=== PATIENT | female | born 2000 | race Caucasian/White ===

== ENCOUNTER 2024-11-01 09:05 | Emergency (ER) | payer BC, MEDICAID ==
[~2024-11-01] VITALS: Ht 157.5 cm; Wt 95.0 kg
[2024-11-01 09:14] VITALS: O2SAT 100
[2024-11-01] MEDS: KETOROLAC 30MG/ML VIAL IM ONE (09:47)
[2024-11-01] MEDS: METHOCARBAMOL 500MG TABLET PO ONE (09:48)
[2024-11-01] MEDS: CLONIDINE 0.1MG TABLET PO ONE (09:48)
[2024-11-01 09:58] LABS: CREATININE 0.9 mg/dL (0.6-1.0)
[2024-11-01 09:59] LABS: BASOPHILS % 1.0 % (0.0-2.0); EOSINOPHILS % 3.2 % (0.0-5.0); HEMATOCRIT. 39.8 % (36.0-48.0); HEMOGLOBIN. 12.6 g/dL (12.0-16.0); LYMPHOCYTES % 49.3 % (20.0-50.0); MEAN PLATELET VOLUME 8.1 fl (7.4-10.4); MONOCYTES % 6.3 % (2.0-8.0); NEUTROPHILS % 40.2 % (40.0-76.0); PLATELET 379 x1000/uL (130-400); RED BLOOD CELL COUNT 6.00 mill/uL (4.2-5.4); RED CELL DISTRIBUTION WIDTH 16.9 % (11.6-14.6); UREA NITROGEN BLOOD 7 mg/dL (9-23)
[2024-11-01 10:00] LABS: ADD RBC MORPHOLOGY YES
[2024-11-01 10:23] LABS: PLATELET ESTIMATE NORMAL
[2024-11-01 10:33] LABS: HCG SCREEN NEGATIVE
[2024-11-01] MEDS ORDERED: METH-653 MT (11:49)
[2024-11-01] MEDS ORDERED: IBUP-2029 MT (11:49)
[2024-11-01] MEDS ORDERED: LIDO700A30 TP (11:49)
[2024-11-01 12:11] VITALS: BP 143/96; PULSE 76; RESP 18; TEMP 36.9; O2SAT 97
== END 2024-11-01 12:20 | disposition home or self-care (01) ==
LOC: ER 09:05
DX: M48.07 Spinal stenosis, lumbosacral region (principal); E28.2 Polycystic ovarian syndrome; I10 Essential (primary) hypertension
CPT/HCPCS: 99285; 72131; 80048; 81025; 84703; 85025; 36415; 96372; J1885

== ENCOUNTER → 2024-12-05 | Outpatient (CLI) | payer BC ==
[~2024-12-05] MED LIST: IBUP-1455 MT; LIDO700A30 TP; METH-653 MT
[2024-12-05 14:26] LABS: CREATININE 0.9 mg/dL (0.6-1.0)
== END | disposition home or self-care (01) ==
LOC: LAB 13:48
PROVIDERS: ATTEND Internal Medicine
DX: I10 Essential (primary) hypertension (principal); E28.2 Polycystic ovarian syndrome; D35.00 Benign neoplasm of unspecified adrenal gland; M54.30 Sciatica, unspecified side
CPT/HCPCS: 36415; 82040; 82088; 82565; 84244; 84403

== ENCOUNTER 2024-12-08 16:47 | Inpatient (IN) | payer BC ==
[~2024-12-08] VITALS: Ht 157.5 cm; Wt 96.2 kg
[2024-12-08 17:23] VITALS: O2SAT 100
[2024-12-08 19:46] LABS: GLUCOSE URINE TRACE (NEGATIVE); KETONES URINE TRACE (NEGATIVE); LEUKOCYTE ESTERASE URINE NEGATIVE (NEGATIVE); NITRITE URINE NEGATIVE (NEGATIVE); OCCULT BLOOD URINE NEGATIVE (NEGATIVE); PH URINE 5.0 (4.5-8.0); PROTEIN URINE 1+ (NEGATIVE); SPECIFIC GRAVITY URINE 1.030 (1.005-1.030); UROBILINOGEN URINE 0.2 E.U./dL (0.2-1.0)
[2024-12-08] MEDS: HYDROCODONE/ACETAMINOPHEN 5/325MG TABLET PO ONE (19:56)
[2024-12-08 20:20] LABS: CLARITY URINE SL HAZY (CLEAR); COLOR URINE YELLOW (YELLOW)
[2024-12-08 20:22] LABS: WBC URINE 0-2 /hpf (0-2)
[2024-12-08 20:23] LABS: RBC URINE NONE SEEN /hpf (0-2); SQUAMOUS EPITHELIAL CELL URINE 1+ /lpf (RARE/1+)
[2024-12-08 20:25] LABS: BACTERIA URINE 1+
[2024-12-08 23:14] LABS: ADD RBC MORPHOLOGY YES; BASOPHILS % 0.7 % (0.0-2.0); EOSINOPHILS % 2.0 % (0.0-5.0); HEMATOCRIT. 37.8 % (36.0-48.0); HEMOGLOBIN. 12.2 g/dL (12.0-16.0); LYMPHOCYTES % 47.5 % (20.0-50.0); MEAN PLATELET VOLUME 8.1 fl (7.4-10.4); MONOCYTES % 6.4 % (2.0-8.0); NEUTROPHILS % 43.4 % (40.0-76.0); PLATELET 348 x1000/uL (130-400); RED BLOOD CELL COUNT 5.63 mill/uL (4.2-5.4); RED CELL DISTRIBUTION WIDTH 16.5 % (11.6-14.6)
[2024-12-08 23:22] LABS: PLATELET ESTIMATE NORMAL
[2024-12-08 23:25] LABS: CREATININE 0.8 mg/dL (0.6-1.0); UREA NITROGEN BLOOD 9 mg/dL (9-23)
[2024-12-08 23:27] LABS: ASPARTATE AMINOTRANSFERASE 25 IU/L (<34)
[2024-12-08 23:28] LABS: BILIRUBIN DIRECT 0.1 mg/dL (<=3.0); BILIRUBIN TOTAL 0.4 mg/dL (0.1-1.0); PROTEIN TOTAL 7.6 g/dL (6.0-8.3)
[2024-12-08 23:30] LABS: HCG SCREEN NEGATIVE
[2024-12-09] MEDS ORDERED: CLONIDINE 0.1MG TABLET PO PRN ×2 (01:00→07:45)
[2024-12-09 01:26] LABS: HEPATITIS C AB NON REACTIVE (Neg) (Negative)
[2024-12-09 01:40] VITALS: BP 126/81; PULSE 84; RESP 18; TEMP 36.5292
[2024-12-09] MEDS ORDERED: CLON0.1T PO (03:50)
[2024-12-09] MEDS ORDERED: LOSA50TA41 PO (03:50)
[2024-12-09] MEDS ORDERED: AMLO10TA80 PO (03:50)
[2024-12-09] MEDS ORDERED: GUAIFENESIN 200MG/10ML SUGAR FREE UDC PO PRN (07:45)
[2024-12-09] MEDS ORDERED: ACETAMINOPHEN 325MG TABLET PO PRN (07:45)
[2024-12-09] MEDS ORDERED: IPRATROPIUM/ALBUTEROL 0.5-3(2.5)MG/3ML NEB HHN PRN (07:45)
[2024-12-09] MEDS ORDERED: DOCUSATE SODIUM 100MG CAPSULE PO PRN (07:45)
[2024-12-09 08:00] VITALS: BP 131/92; PULSE 85; RESP 18; TEMP 36.6; O2SAT 99
[2024-12-09] MEDS ORDERED: KETOROLAC 30MG/ML VIAL IV PRN (08:15)
[2024-12-09] MEDS: LOSARTAN 25 MG TABLET PO SCH (09:13)
[2024-12-09] MEDS: AMLODIPINE 10MG TABLET PO SCH (09:13)
[2024-12-09] MEDS: HYDROCODONE/ACETAMINOPHEN 5/325MG TABLET PO PRN (09:14)
[2024-12-09 12:00] VITALS: BP 115/73; PULSE 85; RESP 20; TEMP 36.4; O2SAT 100
[2024-12-09] MEDS: GABAPENTIN 100MG CAPSULE PO SCH (13:42)
[2024-12-09] MEDS: CYCLOBENZAPRINE 10MG TABLET PO SCH (13:42)
[2024-12-09 16:00] VITALS: BP 134/79; PULSE 90; RESP 20; TEMP 36.2; O2SAT 98
[2024-12-09] MEDS ORDERED: NALOXONE HCL 0.4MG/ML VIAL IV PRN (17:15)
[2024-12-09 20:00] VITALS: BP 117/76; PULSE 95; RESP 20; TEMP 36.3; O2SAT 98
[2024-12-09] MEDS: ENOXAPARIN 30MG/0.3ML SYR SUBCUT SCH (21:49)
[2024-12-10] VITALS: BP 112/72; PULSE 92; RESP 20; TEMP 36.2; O2SAT 97
[2024-12-10 04:00] VITALS: BP 114/70; PULSE 83; RESP 20; TEMP 36.6; O2SAT 95
[2024-12-10 07:26] LABS: BASOPHILS % 0.7 % (0.0-2.0); EOSINOPHILS % 2.8 % (0.0-5.0); HEMATOCRIT. 37.4 % (36.0-48.0); HEMOGLOBIN. 12.4 g/dL (12.0-16.0); LYMPHOCYTES % 61.5 % (20.0-50.0); MEAN PLATELET VOLUME 8.9 fl (7.4-10.4); MONOCYTES % 6.8 % (2.0-8.0); NEUTROPHILS % 28.2 % (40.0-76.0); PLATELET 317 x1000/uL (130-400); RED BLOOD CELL COUNT 5.63 mill/uL (4.2-5.4); RED CELL DISTRIBUTION WIDTH 16.6 % (11.6-14.6)
[2024-12-10 07:28] LABS: TRIGLYCERIDE 281 mg/dL (0-150)
[2024-12-10 07:30] LABS: CREATININE 0.8 mg/dL (0.6-1.0)
[2024-12-10 07:31] LABS: LDL CHOLESTEROL 58 mg/dL (5-100); UREA NITROGEN BLOOD 11 mg/dL (9-23)
[2024-12-10 07:32] LABS: ASPARTATE AMINOTRANSFERASE 33 IU/L (<34)
[2024-12-10 07:33] LABS: BILIRUBIN DIRECT 0.2 mg/dL (<=3.0); BILIRUBIN TOTAL 0.6 mg/dL (0.1-1.0); PROTEIN TOTAL 7.2 g/dL (6.0-8.3)
[2024-12-10 07:34] LABS: T4 FREE 1.14 ng/dL (0.89-1.76)
[2024-12-10 07:41] LABS: ADD RBC MORPHOLOGY NO
[2024-12-10 08:56] VITALS: BP 129/75; PULSE 67; RESP 17; TEMP 36.9; O2SAT 100
[2024-12-10] MEDS: PANTOPRAZOLE SODIUM 40 MG/VIAL IV SCH (09:27)
[2024-12-10] MEDS ORDERED: LIDOCAINE HCL/EPINEPHRINE 1%-EPI 1:100,000 20ML VIAL ONE (11:03)
[2024-12-10] MEDS ORDERED: GENTAMICIN SULF 40MG/ML 2ML VIAL ONE (11:03)
[2024-12-10] MEDS ORDERED: THROMBIN (BOVINE) 5000 UNITS/VIAL TOP ONE (11:03)
[2024-12-10 11:55] LABS: INR 1.0
[2024-12-10 12:00] VITALS: BP 136/95; PULSE 87; RESP 20; TEMP 36.9; O2SAT 100
[2024-12-10] MEDS ORDERED: FAMOTIDINE 20MG/2ML VIAL IV ONE (12:17)
[2024-12-10] MEDS ORDERED: SUCCINYLCHOLINE CHLORIDE 200MG/10ML IV ONE (12:29)
[2024-12-10] MEDS ORDERED: DEXAMETHASONE 4MG/ML 1ML VIAL ONE (12:29)
[2024-12-10] MEDS ORDERED: CEFAZOLIN SODIUM 1000MG/VIAL ONE (12:29)
[2024-12-10] MEDS ORDERED: LIDOCAINE HCL 1% 10 MG/ML 10ML VIAL ONE (12:29)
[2024-12-10] MEDS ORDERED: ROCURONIUM BROMIDE 10MG/ML VIAL 5ML IV ONE ×2 (12:29→14:09)
[2024-12-10] MEDS ORDERED: NICARDIPINE 40MG/200ML PREMIX 200 ML IV ONE (12:37)
[2024-12-10] MEDS ORDERED: PHENYLEPHRINE 50MG/250ML PMX 250 ML IV ONE (12:37)
[2024-12-10] MEDS ORDERED: ACETAMINOPHEN 1000MG/100ML 100 ML IV ONE (12:37)
[2024-12-10] MEDS ORDERED: CITRIC ACID/SODIUM CITRATE SOLN 30ML UDC ONE (12:56)
[2024-12-10] MEDS ORDERED: EPHEDRINE SULFATE 50MG/ML VIAL ONE (12:59)
[2024-12-10] MEDS ORDERED: FENTANYL CITRATE/PF 50MCG/ML 2ML VIAL ONE (13:03)
[2024-12-10] MEDS ORDERED: HYDROMORPHONE HCL/PF 1MG/ML INJ ONE ×2 (13:54→17:12)
[2024-12-10] MEDS ORDERED: PROPOFOL 200MG/20ML VIAL IV ONE (14:10)
[2024-12-10] MEDS ORDERED: ONDANSETRON HCL 4MG/2ML INJ IV PRN (14:45)
[2024-12-10] MEDS ORDERED: HYDRALAZINE 20MG/ML VIAL IV PRN ×3 (14:45→17:30)
[2024-12-10] MEDS ORDERED: HYDROMORPHONE HCL/PF 1MG/ML INJ IV PRN (14:45)
[2024-12-10] MEDS ORDERED: LABETALOL 5MG/ML 4ML INJ IV PRN (14:45)
[2024-12-10] MEDS ORDERED: MORPHINE SULFATE 4 MG/ML INJ (FOR IV/IM USE) IV PRN (17:15)
[2024-12-10] MEDS: DEXT 5%/LACTATED RINGERS 1,000 ML IV SCH (17:46)
[2024-12-10 20:00] VITALS: BP 102/54; PULSE 109; RESP 18; TEMP 36.4; O2SAT 96
[2024-12-10] MEDS: CEFAZOLIN 1000MG PREMIX 50 ML IV SCH (21:57)
[2024-12-10] MEDS ORDERED: CEFAZOLIN SODIUM 1000MG/VIAL IV SCH (22:00)
[2024-12-11] VITALS: BP 114/56; PULSE 111; RESP 18; TEMP 36.4; O2SAT 99
[2024-12-11] MEDS: ACETAMINOPHEN 325MG TABLET PO PRN (02:31)
[2024-12-11 04:00] VITALS: BP 138/66; PULSE 85; RESP 20; TEMP 36.2; O2SAT 100
[2024-12-11] MEDS ORDERED: HYDRALAZINE 5 MG in SODIUM CHLORIDE 0.9% 49.5 ML IV PRN (06:15)
[2024-12-11] MEDS ORDERED: HYDROMORPHONE HCL/PF 2MG/ML INJ IM PRN (07:45)
[2024-12-11 08:00] VITALS: BP 126/80; PULSE 94; RESP 18; TEMP 36.1; O2SAT 98
[2024-12-11] MEDS: HYDROMORPHONE HCL/PF 1MG/ML INJ IV PRN (09:58)
[2024-12-11 11:43] LABS: BASOPHILS % 0.1 % (0.0-2.0); EOSINOPHILS % 0.0 % (0.0-5.0); HEMATOCRIT. 33.3 % (36.0-48.0); HEMOGLOBIN. 10.8 g/dL (12.0-16.0); LYMPHOCYTES % 19.1 % (20.0-50.0); MEAN PLATELET VOLUME 8.4 fl (7.4-10.4); MONOCYTES % 7.0 % (2.0-8.0); NEUTROPHILS % 73.8 % (40.0-76.0); PLATELET 357 x1000/uL (130-400); RED BLOOD CELL COUNT 4.98 mill/uL (4.2-5.4); RED CELL DISTRIBUTION WIDTH 16.7 % (11.6-14.6)
[2024-12-11 11:56] LABS: CREATININE 0.9 mg/dL (0.6-1.0); UREA NITROGEN BLOOD 8 mg/dL (9-23)
[2024-12-11 12:00] VITALS: BP 147/76; PULSE 104; RESP 19; TEMP 36.2; O2SAT 98
[2024-12-11 16:00] VITALS: BP 125/72; PULSE 89; RESP 18; TEMP 37.3; O2SAT 97
[2024-12-11] MEDS: POLYETHYLENE GLYCOL 3350 (17GM) 1 DOSE PACK PO SCH (17:56)
[2024-12-11 20:00] VITALS: BP 126/84; PULSE 96; RESP 18; TEMP 36.5; O2SAT 98
[2024-12-12] VITALS: BP 113/65; PULSE 100; RESP 18; TEMP 36.2; O2SAT 100
[2024-12-12 04:00] VITALS: BP 106/57; PULSE 100; RESP 18; TEMP 36.3; O2SAT 98
[2024-12-12 08:00] VITALS: BP 142/89; PULSE 109; RESP 18; TEMP 36.4; O2SAT 99
[2024-12-12] MEDS: FAMOTIDINE 20MG/2ML VIAL IV SCH (09:55)
[2024-12-12 11:24] LABS: BASOPHILS % 0.3 % (0.0-2.0); EOSINOPHILS % 0.4 % (0.0-5.0); HEMATOCRIT. 33.5 % (36.0-48.0); HEMOGLOBIN. 10.6 g/dL (12.0-16.0); LYMPHOCYTES % 30.4 % (20.0-50.0); MEAN PLATELET VOLUME 8.6 fl (7.4-10.4); MONOCYTES % 7.5 % (2.0-8.0); NEUTROPHILS % 61.4 % (40.0-76.0); PLATELET 279 x1000/uL (130-400); RED BLOOD CELL COUNT 4.99 mill/uL (4.2-5.4); RED CELL DISTRIBUTION WIDTH 17.1 % (11.6-14.6)
[2024-12-12 11:29] LABS: ADD RBC MORPHOLOGY NO
[2024-12-12 11:45] LABS: CREATININE 0.8 mg/dL (0.6-1.0); UREA NITROGEN BLOOD 6 mg/dL (9-23)
[2024-12-12 12:00] VITALS: BP 111/64; PULSE 110; RESP 19; TEMP 37.1; O2SAT 97
[2024-12-12] MEDS: DEXAMETHASONE 4MG/ML 1ML VIAL IV SCH (14:49)
[2024-12-12 16:00] VITALS: BP 128/88; PULSE 114; RESP 18; TEMP 37.8; O2SAT 98
[2024-12-12] MEDS: HYDROMORPHONE HCL/PF 2MG/ML INJ IV PRN (16:03)
[2024-12-12 20:00] VITALS: BP 141/90; PULSE 114; RESP 18; TEMP 37.9; O2SAT 99
[2024-12-12] MEDS: HYDROCODONE/ACETAMINOPHEN 10/325MG TABLET PO PRN (20:09)
[2024-12-12] MEDS: POLYETHYLENE GLYCOL 3350 (17GM) 1 DOSE PACK PO SCH (21:28)
[2024-12-13] VITALS: BP 144/83; PULSE 104; RESP 18; TEMP 36.8; O2SAT 98
[2024-12-13 04:00] VITALS: BP 113/65; PULSE 77; RESP 18; TEMP 36.7; O2SAT 100
[2024-12-13 08:00] VITALS: BP 118/73; PULSE 74; RESP 16; TEMP 36.3; O2SAT 98
[2024-12-13 12:00] VITALS: BP 127/78; PULSE 98; RESP 18; TEMP 36.5; O2SAT 95
[2024-12-13 16:05] VITALS: BP 127/78; PULSE 98; RESP 18; TEMP 97.7
[2024-12-13] MEDS ORDERED: METHOCARBAMOL 750MG TABLET PO SCH (21:00)
[2024-12-14] MEDS ORDERED: LOSARTAN 50 MG TABLET PO SCH (09:00)
== END 2024-12-13 17:20 | DRG 519 ==
LOC: ER 16:47 → 6EST 22:53 → EDBEDREQTM 23:03 → EDBEDREQ 23:03 → ENRESERV 23:17 → 6EST 12-11 06:00
PROVIDERS: ADMIT Hospitalist; ATTEND Hospitalist
PROC: 01NR0ZZ Release Sacral Nerve, Open Approach (ICD-10-PCS; principal; 2024-12-10)
PROC: 0SB20ZZ Excision of Lumbar Vertebral Disc, Open Approach (ICD-10-PCS; 2024-12-10)
PROC: 01NB0ZZ Release Lumbar Nerve, Open Approach (ICD-10-PCS; 2024-12-10)
PROC: 0SB40ZZ Excision of Lumbosacral Disc, Open Approach (ICD-10-PCS; 2024-12-10)
PROC: 4A11X4G Monitoring of Peripheral Nervous Electrical Activity, Intraoperative, External Approach (ICD-10-PCS; 2024-12-10)
DX: M48.061 Spinal stenosis, lumbar region without neurogenic claudication (principal); G82.20 Paraplegia, unspecified; G83.4 Cauda equina syndrome; M51.16 Intervertebral disc disorders with radiculopathy, lumbar region; M25.78 Osteophyte, vertebrae; I10 Essential (primary) hypertension; E11.9 Type 2 diabetes mellitus without complications; M51.27 Other intervertebral disc displacement, lumbosacral region; E28.2 Polycystic ovarian syndrome; E66.812 Obesity, class 2; F41.9 Anxiety disorder, unspecified; K59.00 Constipation, unspecified; G89.29 Other chronic pain; M51.17 Intervertebral disc disorders with radiculopathy, lumbosacral region; Z68.38 Body mass index [BMI] 38.0-38.9, adult; Z79.899 Other long term (current) drug therapy
CPT/HCPCS: 36415; 72100; 72148; 76000; 80048; 80061; 80076; 81003; 84439; 84443; 84703; 85025; 86705; 86850; 86900; 87340; 88304; 88311; 93970; 95925; 95926; 95928; 95929; 97116; 97162; 97530; 99285; A4606; J0330; J0690; J1100; J1171; J1308; J1580; J1650; J2003; J2004; J2371; J2470; J2704; J3010; J3490; J7121; J0131

== ENCOUNTER → 2025-01-16 | Outpatient (CLI) | payer BC ==
[~2025-01-16] MED LIST changes: +AMLO10TA80 PO; +CLON0.1T PO; +LOSA50TA41 PO
== END | disposition home or self-care (01) ==
LOC: US 08:37
PROVIDERS: ATTEND Obstetrics & Gynecology Obstetrics
DX: E28.2 Polycystic ovarian syndrome (principal)
CPT/HCPCS: 76830; 76856